=== PATIENT | female | born 1985 | race Caucasian/White ===

== ENCOUNTER 2021-01-21 12:02 | Inpatient (IN) | payer BC, OTHER ==
[~2021-01-21] VITALS: Ht 162.6 cm; Wt 106.1 kg
[~2021-01-21 12:02] MED LIST: COLACE 100MG C100 MG PO
[2021-01-21 12:41] LABS: HEMOGLOBIN 13.2 gm/dl (12.3-15.3); RED BLOOD COUNT 4.31 M/UL (4.00-5.10); WHITE BLOOD COUNT 8.9 K/UL (4.5-11.0)
[2021-01-21] MEDS ORDERED: HYDROCODON-ACE1 EAC4 PO (21:54)
[2021-01-21] MEDS ORDERED: DOCUSATE SODIU100 MG PO (21:54)
[2021-01-21] MEDS ORDERED: IBUPROFEN800 MG PO (21:54)
[2021-01-22] MEDS ORDERED: PRENATA CHEWAB1 EACH PO (03:00)
[2021-01-22 06:32] LABS: HEMOGLOBIN 12.7 gm/dl (12.3-15.3)
== END 2021-01-23 14:59 | disposition home or self-care (01) | DRG 806 ==
LOC: GENOP 12:02 → OB 12:26
PROVIDERS: ADMIT Obstetrics & Gynecology
PROC: 10E0XZZ Delivery of Products of Conception, External Approach (ICD-10-PCS; principal; 2021-01-21)
PROC: 10907ZC Drainage of Amniotic Fluid, Therapeutic from Products of Conception, Via Natural or Artificial Opening (ICD-10-PCS; 2021-01-21)
PROC: 3E033VJ Introduction of Other Hormone into Peripheral Vein, Percutaneous Approach (ICD-10-PCS; 2021-01-21)
PROC: 0HQ9XZZ Repair Perineum Skin, External Approach (ICD-10-PCS; 2021-01-21)
DX: O24.429 Gestational diabetes mellitus in childbirth, unspecified control (principal); O41.03X0 Oligohydramnios, third trimester, not applicable or unspecified; Z37.0 Single live birth; Z3A.37 37 weeks gestation of pregnancy; O66.0 Obstructed labor due to shoulder dystocia; O70.0 First degree perineal laceration during delivery; O62.2 Other uterine inertia; Z20.822 Contact with and (suspected) exposure to COVID-19; Z28.21 Immunization not carried out because of patient refusal
CPT/HCPCS: 36415; 81001; 82800; 82962; 85014; 85018; 85025; J2590; J2795; J3010; U0002